=== PATIENT | female | born 1975 | race Caucasian/White ===

== ENCOUNTER 2019-05-31 06:19 | Emergency (ER) | payer SELFPAY ==
[2019-05-31] MEDS ORDERED: IPRATROPIUM/ALBUTEROL 0.5-2.5 MG/3 ML AMPUL NEB ONE (07:52)
--- NOTE | 2019-05-31 08:17 | RADIOLOGY REPORT (SQ) ---
EXAM DESCRIPTION: CHEST SINGLE VIEW COMPLETED DATE/TIME: 05/31/2019 8:09 am REASON FOR STUDY: SOB COMPARISON: None. NUMBER OF VIEWS: One view. TECHNIQUE: Single frontal radiographic image of the chest acquired. LIMITATIONS: None. FINDINGS: LUNGS AND PLEURA: Stable appearance. MEDIASTINUM AND HILAR STRUCTURES: Stable heart size and mediastinal structures. HEART AND VASCULAR STRUCTURES: Stable appearance. SUPPORT DEVICES: Appropriate location without change. BONES: No acute findings. OTHER: No other significant finding. IMPRESSION: STABLE APPEARANCE OF THE CHEST. SUPPORT DEVICES UNCHANGED. TECHNICAL DOCUMENTATION: JOB ID: [id number] [employer]- All Rights Reserved Reading location - IP/workstation name: [email or web address]
[2019-05-31] MEDS ORDERED: ALBUTEROL SULFATE 0.083% NEB 2.5 MG/3 ML AMPUL NEB ONE ×2 (08:24→10:21)
[2019-05-31] MEDS ORDERED: LIDOCAINE 1% INJ-PF (10 MG/ML) 30 ML SDV NEB ONE (08:24)
[2019-05-31] MEDS ORDERED: PREDNISONE 20 MG TABLET PO ONE (08:25)
[2019-05-31] MEDS ORDERED: BENZONATATE 100 MG CAPSULE PO ONE (08:25)
--- NOTE | 2019-05-31 10:14 | ER Document Report ---
Entered by WILFREDO BURNS SCRIBE 05/31/19 0826 Acting as scribe for:THADDEUS TATUM MD ED Respiratory Problem - General Chief Complaint: Breathing Difficulty Stated Complaint: COUGH,WHEEZING,CHEST TIGHTNESS Time Seen by Provider: 05/31/19 08:18 Mode of Arrival: Ambulatory Information source: Patient Notes: Patient is a 43-year-old female that recently moved to the area from [place] who presents to the emergency department today with complaints of a 2-week history of shortness of breath. Patient states that she recently moved here from [place]. Patient states she has no respiratory medical history other than bronchitis. Patient states she thinks there could be a variety of reasons for this shortness of breath including the new humidity here in [place], mold in her new house, and "drywall dust". Patient states she has been bringing up green and yellow sputum with her cough. Patient mentions she now has some chest soreness associated with the cough. Patient states her last menstrual period was "less than a month ago". Patient denies any nasal congestion. TRAVEL OUTSIDE OF THE [place] IN LAST 30 DAYS: No - Related Data Allergies/Adverse Reactions: amoxicillin Allergy (Verified 05/31/19 06:30) Penicillins Allergy (Verified 05/31/19 06:30) Past Medical History - General Information source: Patient - Social History Smoking Status: Never Smoker Cigarette use (# per day): No Chew tobacco use (# tins/day): No Smoking Education Provided: No Frequency of alcohol use: None Drug Abuse: None Lives with: Family Family History: Reviewed & Not Pertinent Patient has suicidal ideation: No Patient has homicidal ideation: No Pulmonary Medical History: Reports: Hx Bronchitis Review of Systems - Review of Systems Constitutional: No symptoms reported EENT: denies: Nose congestion Cardiovascular: No symptoms reported Respiratory: See HPI, Cough, Short of breath, Sputum, Wheezing Gastrointestinal: No symptoms reported Genitourinary: No symptoms reported Female Genitourinary: See HPI, Last menstrual period - "less than a month ago" Musculoskeletal: No symptoms reported Skin: No symptoms reported Hematologic/Lymphatic: No symptoms reported Neurological/Psychological: No symptoms reported -: Yes All other systems reviewed and negative Physical Exam - Vital signs Vitals: Temp Pulse Resp BP Pulse Ox 98.3 F 97 19 145/76 H 97 05/31/19 06:32 05/31/19 06:32 05/31/19 06:32 05/31/19 06:32 05/31/19 06:32 - Notes Notes: Physical Exam: General: Alert, appears well. HEENT: Normocephalic. Atraumatic. PERRL. Extraocular movements intact. Oropharynx clear. No posterior oropharynx erythema, exudate, or swelling. Neck: Supple. Non-tender. Respiratory: Lung exam performed after breathing treatment had been administered. Rhonchi and wheezing bilaterally with forced cough, right greater than left. Cardiovascular: Regular rate and rhythm. Abdominal: Normal Inspection. Non-tender. No distension. Normal Bowel Sounds. Back: No gross abnormalities. Extremities: Moves all four extremities. Upper extremities: Normal inspection. Normal ROM. Lower extremities: Normal inspection. No edema. Normal ROM. Neurological: Normal cognition. AAOx4. Normal speech. Psychological: Normal affect. Normal Mood. Skin: Warm. Dry. Normal color. Course - Re-evaluation Re-evalutation: 05/31/19 11:29 Patient is much improved after the breathing treatments. - Vital Signs Vital signs: Temp Pulse Resp BP Pulse Ox 98.4 F 85 16 129/91 H 97 05/31/19 10:27 05/31/19 10:27 05/31/19 10:27 05/31/19 10:27 05/31/19 10:27 - Diagnostic Test Radiology reviewed: Image reviewed, Reports reviewed - Chest x-ray is unremarkable. Discharge - Discharge Clinical Impression: Acute bronchitis with bronchospasm Condition: Stable Disposition: HOME, SELF-CARE Additional Instructions: Bronchitis with Bronchospasm (Wheezing) You have bronchitis with bronchospasm (wheezing). Sometimes people develop wheezing with a chest cold. This occurs either because of an underlying tendency toward asthma or because the virus itself irritates the bronchial tubes. This irritation causes cough, shortness of breath, and wheezing. Emergency treatment of bronchospasm may include adrenaline shots or bronchodilator aerosol. You may feel lightheaded and have a rapid pulse for an hour or two. Rest and get plenty of fluids. At home, we'll treat you with a bronchodilator inhaler. Corticosteroids may be required for some patients. Until you recover, avoid chemical fumes, dusts, pollens, and exercising in very cold or dry air. If you smoke, stop now! Most cases of bronchitis get better without antibiotics. We prescribe antibiotics when we believe bacteria are damaging your airways, or if there's high risk the bronchitis will worsen into pneumonia. Increase your fluid intake. A cool mist humidifier may make your lungs more comfortable. An expectorant (cough medicine that loosens phlegm) can help. Repeated episodes of bronchitis and bronchospasm may result in lung damage -- for example, chronic bronchitis, recurrent pneumonias, or emphysema. If you develop a fever, increased wheezing, chest pain, or severe shortness of breath, you should contact the doctor immediately. Take the medications as prescribed--start the prednisone and Zithromax tomorrow. Drink plenty of fluids and get plenty of rest. Follow-up with a local medical doctor if not improving. RETURN TO THE EMERGENCY ROOM IF ANY NEW OR WORSENING SYMPTOMS. Prescriptions: Prednisone [Deltasone 10 mg Tablet] 10 mg PO ASDIR PRN #21 tablet PRN Reason: Albuterol Sulfate [Proair Hfa Inhalation Aerosol 8.5 gm Mdi] 2 puff IH ASDIR PRN #1 mdi PRN Reason: Benzonatate [Tessalon Perles 100 mg Capsule] 100 mg PO ASDIR PRN #30 capsule PRN Reason: Azithromycin [Zithromax 250 mg Tablet] 250 mg PO DAILY #4 tablet Scribe Attestation: 05/31/19 11:35 I personally performed the services described in the documentation, reviewed and edited the documentation which was dictated to the scribe in my presence, and it accurately records my words and actions. I personally performed the services described in the documentation, reviewed and edited the documentation which was dictated to the scribe in my presence, and it accurately records my words and actions.
[2019-05-31] MEDS ORDERED: AZITHROMYCIN 250 MG TABLET PO ONE (10:21)
[2019-05-31 11:54] VITALS: BP 141/77
== END 2019-05-31 11:44 | disposition home or self-care (01) ==
LOC: ER 06:19
DX: J20.9 Acute bronchitis, unspecified (principal); R06.02 Shortness of breath; R07.9 Chest pain, unspecified; R05 Cough
CPT/HCPCS: 71045; J3490; J7512; J7620; 94640; 96374; 99284